=== PATIENT | male | born 1960 | race Caucasian/White ===

== ENCOUNTER → 2016-10-10 | Outpatient (CLI) | payer OTHER | LOC: FIMAGING 13:11 | PROVIDERS: ATTEND Internal Medicine Pulmonary Disease | DX: S99.911A Unspecified injury of right ankle, initial encounter (principal); Y93.55 Activity, bike riding ==

== ENCOUNTER 2017-04-05 05:38 | Day surgery (SDC) | payer OTHER ==
--- NOTE | 2017-04-04 19:16 | GHP ---
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 I have followed his progress with both of his knees through the years. Bilaterally, he has tricompartment osteoarthritis, both knees have received multiple rounds of viscosupplementation. Th e right knee recently has not been responsive to viscosupplementation, his x-rays show tricompartment osteoarthritis with reasonable preservation of his medial and lateral compartments, there is some de generative lipping of the patellofemoral space. He does have a pacemaker that is not MRI compatible. So, our decision regarding surgery is based on his clinical progress including his exam, history an d his x-rays. A right knee arthroscopy is planned, I am anticipating chondroplasty and meniscal work . PAST MEDICAL HISTORY: He does have an arrhythmia, requiring a pacemaker. He has had a left knee art hroscopy. ALLERGIES: He has no known drug allergies. SOCIAL HISTORY: He has never been a smoker. REVIEW OF SYSTEMS: Positive from the cardiac standpoint for arrhythmia and pacemaker. PHYSICAL EXAM: GENERAL: The patient is a well-developed, well-nourished male in no apparent distres s. HEAD AND NECK: Normocephalic, atraumatic. CHEST: Clear. CARDIOVASCULAR: Regular rate and rhy thm. ABDOMEN: Soft. NEUROLOGIC: He is alert and oriented x3. EXTREMITIES: Examination of the [employer] knee shows a slight flexion contracture, a small effusion, no erythema or warmth. He has flexion to about 120 degrees. He does have some mild medial and lateral joint line tenderness as well as se nsitivity around the patellar facets, and the knee appears to be ligamentously stable. X-RAYS: Weightbearing shows that while there is some degenerative lipping of all 3 compartments, the re is reasonable preservation of joint space, some narrowing of the patellofemoral compartment. IMPRESSION: Right knee moderate tricompartment osteoarthritis with increasing mechanical symptoms. PLANS: Right knee arthroscopy, chondroplasty, meniscal work as needed. Benefits and risks of surger y have been reviewed. He will sign his consent form day of surgery. /[id number]/MODL
[2017-04-05] MEDS ORDERED: ceFAZolin 2 GM/SWFI 2 GM/20 ML SYR IVP ONE (05:53)
[2017-04-05] MEDS ORDERED: LR 1,000 ML IV SCH (05:53)
[2017-04-05] MEDS ORDERED: LIDOCAINE 1% 2 ML INJ ID PRN (05:54)
[2017-04-05] MEDS ORDERED: LR 1,000 ML IV ONE (05:54)
[2017-04-05 06:20] VITALS: TEMP 97.7
[2017-04-05] MEDS ORDERED: BUPIVACAINE/EPI 0.5% 30 ML SDV ONE (06:48)
[2017-04-05] MEDS ORDERED: DEPO METHYLPREDNISOLONE 40 MG/ML SDV ONE (06:48)
[2017-04-05] MEDS ORDERED: BUPIVACAINE 0.5% 10 ML SDV ONE (06:49)
--- NOTE | 2017-04-05 06:49 | PDANEPAE ---
ANE History of Present Illness 57 year old male w/ PMHx of complete heart block (w/ pacemaker) presents for knee arthroscopy. ANE Past Medical History - Cardiovascular History Hx Hypertension: No Hx Arrhythmias: Yes Hx Chest Pain: No Hx Coronary Artery / Peripheral Vascular Disease: No Hx CHF / Valvular Disease: No Hx Palpitations: No Cardiovascular History Comment: COMPLETE HEART BLOCK. PACEMAKER - Pulmonary History Hx COPD: No Hx Asthma/Reactive Airway Disease: No Hx Recent Upper Respiratory Infection: No Hx Oxygen in Use at Home: No Hx Sleep Apnea: No Sleep Apnea Screening Result - Last Documented: Negative Pulmonary History Comment: RECENT INFLUENZA A - TX W/TAMIFLU - Neurologic History Hx Cerebrovascular Accident: No Hx Seizures: No Hx Dementia: No - Endocrine History Hx Diabetes: No Hypothyroid: No Hyperthyroid: No Obesity: no - Renal History Hx Renal Disorders: No - Liver History Hx Hepatic Disorders: No - Neurological & Psychiatric Hx Hx Neurological and Psychiatric Disorders: No - Cancer History Hx Cancer: No - Congenital Disorder History Hx Congenital Disorders: No - GI History Hx Gastrointestinal Disorders: No - Other Health History Other Health History: NEG - Chronic Pain History Chronic Pain: Yes (CHRONIC KNEE PAIN) - Surgical History Prior Surgeries: THUMB. ARTHROSCOPY KNEE. 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: [employer] Pacemaker Mode: DDD Date Pacemaker Last Checked: 02/2017 ANE Patient History - Allergies Allergies/Adverse Reactions: No Known Allergies Allergy (Unverified 04/01/17 12:07) - Home Medications Home medications: home medication list seen and reviewed Home Medications: Motrin (*) 04/01/17 [Last Taken 03/31/17] Multivitamin (*) 04/01/17 [Last Taken 04/02/17] Pepcid 20 MG (*) 04/05/17 [Last Taken 04/04/17] - NPO status NPO Status: no food or drink >8 hours NPO Since - Liquids (Date): 04/04/17 NPO Since - Liquids (Time): 20:00 NPO Since - Solids (Date): 04/04/17 NPO Since - Solids (Time): 19:00 - Anes Hx Anes Hx: no prior problems - Smoking Hx Smoking Status: Never smoked Marijuana use: No - Alcohol Use Alcohol Use: Rarely - Family Anes Hx Family Anes Hx: neg - N/A Family Hx Anesthesia Complications: NEG ANE Labs/Vital Signs - Vital Signs Vital Signs: reviewed preoperatively; see RN documention for details Blood Pressure: 142/115 Heart Rate: 65 Respiratory Rate: 18 O2 Sat (%): 95 Height: 177.8 cm Weight: 86.183 kg ANE Physical Exam - Airway Neck exam: FROM Mallampati Score: Class 2 Mouth exam: normal dental/mouth exam - Pulmonary Pulmonary: no respiratory distress - Cardiovascular Cardiovascular: regular rate and rhythym - ASA Status ASA Status: III (Complete heart block requiring pacemaker) ANE Anesthesia Plan Anesthesia Plan: general endotracheal anesthesia, GA w LMA Total IV Anesthesia: No
[2017-04-05] MEDS ORDERED: MIDAZOLAM 2 MG/2 ML VIAL IVP ONE (07:02)
--- NOTE | 2017-04-05 07:09 | PDHPUP ---
History & Physical Update H&P update statement: This history and physical update is based on an assessment of the patient which was completed after admission or registration (within 24 hours), but prior to the surgery/procedure.
[2017-04-05] MEDS ORDERED: PROPOFOL 200 MG/20 ML VIAL ONE (07:11)
[2017-04-05] MEDS ORDERED: fentaNYL 100 MCG/2 ML INJ ONE (07:12)
[2017-04-05] MEDS ORDERED: PROPOFOL/EMULSION 500 MG/50 ML BOTTLE IV ONE ×2 (07:12→07:56)
[2017-04-05] MEDS ORDERED: ONDANSETRON 4 MG/2 ML VIAL ONE (07:17)
[2017-04-05] MEDS ORDERED: DEXAMETHASONE 4 MG/ML VIAL ONE (07:17)
[2017-04-05] MEDS ORDERED: fentaNYL 100 MCG/2 ML INJ IVP PRN (07:49)
[2017-04-05] MEDS ORDERED: NALOXONE HCL 0.4 MG/ML INJ IVP PRN (07:49)
[2017-04-05] MEDS ORDERED: HYDROCODONE/APAP 5/325 TAB PO PRN (07:49)
[2017-04-05] MEDS ORDERED: PROMETHAZINE HCL 25 MG/ML INJ IVP PRN (07:49)
[2017-04-05] MEDS ORDERED: LABETALOL HCL 5 MG/ML 20 ML MDV IVP PRN (07:49)
[2017-04-05] MEDS ORDERED: LR 500 ML IV PRN (07:49)
[2017-04-05] MEDS ORDERED: PHENYLEPHRINE HCL 100 MCG/ML SYR IVP PRN (07:49)
[2017-04-05] MEDS ORDERED: ONDANSETRON 4 MG/2 ML VIAL IVP PRN (07:49)
[2017-04-05 08:39] VITALS: PULSE 61
--- NOTE | 2017-04-05 08:58 | GOP ---
[f rep st] OPERATIVE REPORT DATE OF OPERATION: 04/05/2017 SURGEON: Juan J Klein MD PREOPERATIVE DIAGNOSIS: Right knee chondromalacia. POSTOPERATIVE DIAGNOSIS: Right knee tricompartment chondromalacia. PROCEDURE PERFORMED: Right knee arthroscopy, tricompartment chondroplasty. FINDINGS: Exam under anesthesia demonstrates a slight flexion contracture. Good flexion. He has a small effusion. Patella tends to be a bit high-riding. Ligamentously stable. On arthroscopy, the p atellofemoral articulation has diffuse chondromalacia spanning from grade 2 to patches of grade 4. T here are a lot of frayed unstable edges in the trochlear groove and frayed cartilage on the undersurf rashmi of the patella. The wear does tend to favor the lateral side. There is synovitis in the suprapa tellar pouch and in the anterior aspect of the joint. The medial compartment has an area of grade 2- 3 chondromalacia in a fairly small area on the weightbearing medial femoral condyle, grade 1-2 chondr omalacia on the medial plateau. The medial meniscus is stable and intact. The ACL fibers are a bit attenuated but are present and appear competent. In the lateral compartment, there is a small area o f grade 2-3 chondromalacia, weightbearing femoral condyle, grade 1-2 chondrom[address]acia on the lateral pl ateau and the lateral meniscus is stable and intact. The arthritic wear and chondromalacia is most a dvanced on the patellofemoral articulation. SPECIMENS: None. ESTIMATED BLOOD LOSS: Minimal. 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 He has known arthritic change of the knee that is tricompartment and has had multiple rounds of injections with hyaluronic acid. Recently these injections have failed to address his subpatellar symptoms. He has a pacemaker not compatible with an MRI, so no MRI imaging has been done, but his x-rays show tricompartment arthritis that is moderate in the medial and latera l compartment, more advanced patellofemoral. Arthroscopy and chondroplasty are planned. DESCRIPTION OF PROCEDURE: The patient was taken to the operating room, placed supine on the operatin g table. Placed under general anesthetic with endotracheal intubation. He received 2 g of IV Ancef. I used a leg falk on the right thigh and the right knee was prepped and draped with chlorhexidine in the usual fashion. Standard arthroscopy portals were used and the entire joint inspected with andrae ohara above-noted findings. I used a rotary shaver to smooth the medial femoral condyle where there were small flaps of unstable articular cartilage. I did a synovectomy anteriorly to debulk some of the i nflamed synovium also to improve visualization. In the lateral compartment I smoothed an area of ch ondromalacia on the lateral femoral condyle. The patellofemoral joint received the most attention. I smoothed the undersurface of the patella. I also smoothed the entire trochlear groove to more stab le edges and did some synovial debridement in the suprapatellar pouch as well as at the inferior pole of the patella. The joint was irrigated. I placed 20 cc of 0.5% plain Marcaine with 1 cc of Depo-M edrol 40 mg/cc and the portals were closed with 4-0 Prolene. The wounds were dressed with Betadine-s oaked Adaptic, 4 x 4, sterile Webril, and a long-leg FIDELINA stocking. There were no complications. DRAINS: None. COUNTS: All counts correct. The patient was taken in stable condition to recovery. /[id number]/MODL
[2017-04-05] MEDS ORDERED: HYDROCODONE/APAP 5/325 TAB ONE (09:29)
[2017-04-05 09:44] VITALS: BP 148/97; RESP 15; O2SAT 94
--- NOTE | 2017-04-05 12:50 | POSTANESTH ---
Post Anesthetic Evaluation Cardiovascular Status: Normal, Stable, Similar to Pre-Op Cond Respiratory Status: Normal, Stable, Similar to Pre-op Cond. Level of Consciousness/Mental Status: Can Participate in Eval, Alert and Oriented Pain Control: Adequate, Prn Tx Ordered Nausea/Vomiting Control: Adequate, Prn Tx Ordered Complications Possibly Related to Anesthesia: None Noted
== END 2017-04-05 09:55 | disposition home or self-care (01) ==
LOC: EEVIPCON 05:38 → FSGY 05:38
PROVIDERS: ATTEND Orthopaedic Surgery
PROC: 0SBC4ZZ Excision of Right Knee Joint, Percutaneous Endoscopic Approach (ICD-10-PCS; principal; 2017-04-05 07:15)
PROC: 0SQC4ZZ Repair Right Knee Joint, Percutaneous Endoscopic Approach (ICD-10-PCS; principal; 2017-04-05 07:15)
DX: M94.261 Chondromalacia, right knee (principal); I49.9 Cardiac arrhythmia, unspecified; Z95.0 Presence of cardiac pacemaker
CPT/HCPCS: J0690; J1030; J1100; J2250; J2405; J2704; J3010